=== PATIENT | male | born 1955 | race Caucasian/White ===

== ENCOUNTER 2017-03-30 20:59 | Emergency (ER) | payer OTHER ==
[~2017-03-30] VITALS: Ht 188 cm; Wt 99.8 kg
[~2017-03-30 20:59] MED LIST: ALBU90OI INH; Flomax0.4 MG PO; HYDR1TAB94 PO; Levaquin500 MG PO; MELO7.5; Naprosyn500 MG PO; Norco 10-325 T1 EACH PO; ONDA4ODT MM; TRAM50 PO
[2017-03-30 21:34] LABS: BASOPHILS ABSOLUTE AUTO 0.03 K/mm3 (0.00-0.23); BASOPHILS PERCENT AUTO 1 % (0-2); EOSINOPHILS ABSOLUTE AUTO 0.39 K/mm3 (0.00-0.68); EOSINOPHILS PERCENT AUTO 6 % (0-6); Hematocrit 40.9 % (37.0-53.0); Hemoglobin 14.1 g/dL (13.5-17.5); IMMATURE GRAN ABSOLUTE AUTO 0.02 K/mm3 (0.00-0.10); IMMATURE GRAN PERCENT AUTO 0 % (0-1); LYMPHOCYTES ABSOLUTE AUTO 1.95 K/mm3 (0.84-5.20); LYMPHOCYTES PERCENT AUTO 31 % (21-46); MONOCYTES PERCENT AUTO 10 % (4-13); Mean Corpuscular HGB 31.6 pg (26.0-34.0); Mean Corpuscular HGB Conc 34.5 g/dL (31.5-36.5); Mean Corpuscular Volume 92 fL (80-100); Mean Platelet Volume 9.4 fL (9.1-12.4); NEUTROPHILS ABSOLUTE AUTO 3.31 K/mm3 (1.96-9.15); NEUTROPHILS PERCENT AUTO 53 % (41-73); Platelet Count 223 K/mm3 (150-400); RDW Coefficient Variation 12.8 % (11.7-14.2); Red Blood Cell Count 4.46 M/mm3 (4.30-5.90)
[2017-03-30 21:53] LABS: Alanine Aminotransfer (ALT/SGP 39 U/L (12-78); Albumin, Blood 4.1 g/dL (3.4-5.0); Albumin/Globulin Ratio 1.2 (0.8-1.8); Alk Phos 58 U/L (50-136); Anion Gap 11 mmol/L (6-16); Aspartate Aminotrans (AST/SGOT 46 U/L (12-37); Bilirubin, Total 0.8 mg/dL (0.1-1.0); Blood Urea Nitrogen 26 mg/dL (8-24); Bun/Creatinine Ratio 22.2 (12.0-20.0); CO2, Blood 24 mmol/L (21-32); Chloride, Blood 105 mmol/L (98-108); Creatinine, Blood 1.17 mg/dL (0.60-1.20); Globulin, Blood 3.5 g/dL (2.2-4.0); Glomerular Filtration Rate >60 (60-); Glucose, Blood 100 mg/dL (70-99); Potassium, Blood 3.7 mmol/L (3.5-5.5); Sodium, Blood 140 mmol/L (136-145); Total Protein, Blood 7.6 g/dL (6.4-8.2)
[2017-03-30 22:10] LABS: Ethanol (Alcohol), Blood, Med <3 mg/dL
[2017-03-30] MEDS ORDERED: Percocet 5-3251 EACH PO ×2 (22:22→23:05)
== END 2017-03-30 23:23 | disposition home or self-care (01) ==
LOC: ER 20:59
PROVIDERS: Emergency Medicine
DX: T20.26XA Burn of second degree of forehead and cheek, initial encounter (principal); T23.252A Burn of second degree of left palm, initial encounter; T23.271A Burn of second degree of right wrist, initial encounter; T31.0 Burns involving less than 10% of body surface; Z79.899 Other long term (current) drug therapy; Z79.2 Long term (current) use of antibiotics; Z79.891 Long term (current) use of opiate analgesic; Z87.891 Personal history of nicotine dependence; X15.0XXA Contact with hot stove (kitchen), initial encounter; Y93.G3 Activity, cooking and baking
CPT/HCPCS: 16025; 36415; 71045; 80053; 85025; 96374; 96375; 96376; 99283; G0480; J1170; J2060; J2270; J2405

== ENCOUNTER 2017-03-31 14:32 | Emergency (ER) | payer OTHER ==
[~2017-03-31] VITALS: Ht 193 cm; Wt 113.4 kg
[~2017-03-31 14:32] MED LIST changes: +Percocet 5-3251 EACH PO
== END 2017-03-31 16:26 | disposition home or self-care (01) ==
LOC: ER 14:32
DX: T23.271D Burn of second degree of right wrist, subsequent encounter (principal); T23.252D Burn of second degree of left palm, subsequent encounter; T20.26XD Burn of second degree of forehead and cheek, subsequent encounter; X15.0XXD Contact with hot stove (kitchen), subsequent encounter; Y93.G3 Activity, cooking and baking
CPT/HCPCS: 96372; 99283; J1170

== ENCOUNTER 2017-04-01 00:44 | Day surgery (SDC) | payer OTHER | END 2017-04-01 22:55 | disposition home or self-care (01) | LOC: WOUND 00:44 | DX: Z48.00 Encounter for change or removal of nonsurgical wound dressing (principal); T23.262A Burn of second degree of back of left hand, initial encounter; T23.252A Burn of second degree of left palm, initial encounter; M21.071 Valgus deformity, not elsewhere classified, right ankle; M25.571 Pain in right ankle and joints of right foot; R22.41 Localized swelling, mass and lump, right lower limb; T23.271A Burn of second degree of right wrist, initial encounter; T23.242A Burn of second degree of multiple left fingers (nail), including thumb, initial encounter | CPT/HCPCS: G0463 ==

== ENCOUNTER 2017-04-17 00:58 | Day surgery (SDC) | payer OTHER | END 2017-04-17 22:54 | disposition home or self-care (01) | LOC: WOUND 00:58 | DX: Z48.00 Encounter for change or removal of nonsurgical wound dressing (principal); T23.262D Burn of second degree of back of left hand, subsequent encounter; T23.252D Burn of second degree of left palm, subsequent encounter | CPT/HCPCS: G0463 ==

== ENCOUNTER 2021-02-05 11:02 | Day surgery (SDC) | payer MEDICARE, OTHER ==
[~2021-02-05] VITALS: Ht 193 cm; Wt 116.9 kg
[~2021-02-05 11:02] MED LIST changes: +VOLTAREN ARTHRI20 GM TP
[2021-02-05] MEDS ORDERED: DOXE10 PO (12:13)
[2021-02-05] MEDS ORDERED: ALBU90OI INH (12:14)
--- NOTE | 2021-02-05 15:34 | NUR ---
02/05/21 1534 Margaux Bernstein LATE ENTRY: 30CC OF 0.5% BUPIVACAINE 1:200,000 INJ BY AT THE END OF CASE
== END 2021-02-05 16:00 | disposition home or self-care (01) ==
LOC: ORSCSDS 11:02
PROVIDERS: Podiatrist Foot & Ankle Surgery
PROC: 0SGF04Z Fusion of Right Ankle Joint with Internal Fixation Device, Open Approach (ICD-10-PCS; principal; 2021-02-05 12:30)
PROC: 0QPG04Z Removal of Internal Fixation Device from Right Tibia, Open Approach (ICD-10-PCS; principal; 2021-02-05 12:30)
DX: M19.071 Primary osteoarthritis, right ankle and foot (principal); E11.9 Type 2 diabetes mellitus without complications; Z87.891 Personal history of nicotine dependence
CPT/HCPCS: 82947; C1713; J0171; J0690; J1100; J2250; J2405; J2704; J3010; J7120